=== PATIENT | female | born 1990 | race African-American/Black ===

== ENCOUNTER 2021-09-08 12:20 | Emergency (ER) | payer OTHER ==
[2021-09-08 12:37] VITALS: BMI 56.3
[2021-09-08 14:03] LABS: EPI CELLS 14 /uL (0-25.1); HYALINE CASTS 1 /uL (0-3.1); URINE APPEARANCE CLEAR; URINE BACTERIA 106 /uL (0-1359); URINE BILIRUBIN NEGATIVE (NEGATIVE); URINE COLOR YELLOW; URINE GLUCOSE (UA) NEGATIVE (NEGATIVE); URINE KETONE NEGATIVE (NEGATIVE); URINE LEUK ESTERASE TRACE (NEGATIVE); URINE NITRITE NEGATIVE (NEGATIVE); URINE PROTEIN NEGATIVE (NEGATIVE); URINE RBC 26 /uL (0-23.9); URINE UROBILINOGEN 0.2 mg/dL (0.2-1.0); URINE WBC 12 /uL (0-25.8)
[2021-09-08 14:06] LABS: HCG,QUALITATIVE URINE NEGATIVE
[2021-09-08 17:14] VITALS: BP 122/76; PULSE 88; TEMP 97.8
== END 2021-09-08 17:13 | disposition home or self-care (01) ==
LOC: JER 12:20
DX: R11.2 Nausea with vomiting, unspecified (principal)
CPT/HCPCS: 36415; 81003; 84703; 87086; 87491; 87591; 99283-25